=== PATIENT | female | born 1995 | race Caucasian/White ===

== ENCOUNTER 2018-06-11 17:24 | Emergency (ER) | payer OTHER ==
[~2018-06-11] VITALS: Ht 160 cm; Wt 68.0 kg
[~2018-06-11 17:24] MED LIST: CIPR500T4 PO; HYDR-3029 PO
[2018-06-11 17:28] VITALS: Ht 160 cm; Wt 68.0 kg
--- NOTE | 2018-06-11 21:38 | PSY ---
Date/Time of Note Date/Time of Note DATE: 06/11/18 TIME: 20:58 Psychiatric Subjective Eval Consent Pt consented to telemedicine: Yes Subjective Evaluation Patient location: emergency Chief Complaint: feeling anxious and depressed; denies hurting herself; unable to work Reason for consult: Assessment of dangerousness History of present illness The patient is a 23 year old Female, with a history of mood problems and problematic substance use, presenting with evidence of the same. According to ED staff, the patient presented with feelings of depression and anxiety. She indicated that she had cut herself in the past, and that she was having recent thoughts of cutting herself now. She acknowledged that she has a concurrent h/o stimulant use, and had used methamphetamines prior to presentation. I interviewed the patient with the patient's mother and father present. The patient indicated that she had initially presented with chest discomfort and shortness of breath, and that she was only there "to get checked out." She acknowledged using methamphetamines prior to admission as a means of coping. She explained that she has been unable to work secondary to significant anxiety. She acknowledged relapsing after one month sobriety. She acknowledged low mood, sleep continuity disturbance, signing agent awakenings, feelings of hopele ssness and worthlessness, and intermittent thoughts of wanting to cut herself. However, she denied the account of having made such statements when presenting to the ED. She denied any sxs consistent with psychosis or harpal. I asked the patient's mother about her concerns, and she expressed (with the patient interpreting), that she worried about the patient returning home because "she get's aggressive." She also expressed concern that the patient might indeed harm herself. Given these factors, I advised the patient that I would recommend inpatient psychiatric treatment. The pt. expressed dissatisfaction with this recommendation. Past psychiatric history The patient's first psychiatric interactions occurred in middle school for behavioral problems. She denies any past psychiatric hospitalizations. She denies any past suicide attempts despite telling ED staff that she had previously cut herself. She denies any past psychotropic trials. Hospitalization: Suicidal Attempt(s) Family History Denies Medical history Problems Medical Problems: (1) Drug abuse Status: Acute (2) Drug abuse Status: Acute (3) Patient left without being seen Status: Acute (4) UTI (urinary tract infection) Status: Acute (5) UTI (urinary tract infection) Status: Acute Allergies: Coded Allergies: ibuprofen (Verified Allergy, Unknown, swelling, 12/10/17) Substance Abuse Substance use: other (The patient acknowledges methamphetamine use of approximately $10 per day or less.) Substance abuse history: Yes (The patient acknowledges a h/o stimulant use.) Prior substance abuse treatmen: No Social History Marital status: single Level of education: Some college. DPA/Conservatorship: No Occupation/Fci: None Psychiatric Objective Eval Review of Systems: Review of Systems: Not Applicable Physical Examination: Physical Examination: Not Applicable Mental Status Examination: Appearance: Groomed Eye Contact: Fair Psychomotor Activity: Normal Behavior: Guarded Speech: Slowed AFFECT: Blunt, Depressed, Anxious, Guarded Mood: Depressed, Anxious Though Process: Circumstantial Thought Content: Normal Suicidal: Yes (Patient gives conflicting information to ED staff compared to this examiner.) Homicidal: No On 72 hour hold: No Orientation: x4 Cognition: Alert Insight: Impared Judgement: Impared Attention Span: Distractible Laboratory Results Laboratory Tests Test 06/11/18 20:39 06/11/18 20:43 White Blood Count 7.8 10^3/ul Red Blood Count 4.37 10^6/ul Hemoglobin 13.3 g/dl Hematocrit 40.5 % Mean Corpuscular Volume 92.7 fl Mean Corpuscular Hemoglobin 30.4 pg Mean Corpuscular Hemoglobin Concent 32.8 g/dl Red Cell Distribution Width 13.0 % Platelet Count 270 10^3/UL Mean Platelet Volume 11.1 fl Immature Granulocytes % 0.300 % Neutrophils % 60.8 % Lymphocytes % 29.1 % Monocytes % 8.5 % Eosinophils % 0.9 % Basophils % 0.4 % Nucleated Red Blood Cells % 0.0 /100WBC Immature Granulocytes # 0.020 10^3/ul Neutrophils # 4.8 10^3/ul Lymphocytes # 2.3 10^3/ul Monocytes # 0.7 10^3/ul Eosinophils # 0.1 10^3/ul Basophils # 0.0 10^3/ul Nucleated Red Blood Cells # 0.0 10^3/ul POC Beta HCG, Qualitative NEGATIVE Assessment and Plan Assessment/Diagnosis Diagnosis Major Depressive Disorder, recurrent, severe, without psychotic features (F33.2) rule out Social Anxiety Disorder Amphetamine dependence Recommendation/Plan Medication Management Recommend Remeron 15 mg PO qhs for depression and anxiety until the patient can be placed in a locked facility. Recommend Vistaril (or Benadryl if Vistaril unavailable) 25 mg PO [id number] PRN agitation / anxiety until the patient can be placed. Multiple antipsychotics: No Discharge Disposition: Psychiatric inpatient Legal Status: Place involuntary hold Other The patient requires inpatient treatment and is not a candidate for discharge given the followin.) The patient is giving conflicting accounts of her suicide risk to ED staff compared to this examiner. 2.) The patient is minimizing her past suicide / self-harm history. 3.) Collateral from the patient's mother (with the patient herself translating) suggests ongoing risk of harm to self and even aggression within the household. EDGAR NIELSON MD Jun 11, 2018 21:33
[2018-06-11] MEDS ORDERED: LORAZEPAM 0.5 MG TAB PO ONE (22:00)
[2018-06-11] MEDS ORDERED: CEFTRIAXONE 1 GM INJ IM ONE (22:00)
--- NOTE | 2018-06-11 23:07 | ERD ---
ER Documentation Chief Complaint Chief Complaint feeling anxious and depressed; denies hurting herself; unable to work HPI This is a 23-year-old woman brought in with family members for recent thoughts of suicidal ideation by cutting her wrists. She does admit to recent drug abuse and it seems has been recently threatening to her parents. She admits to feeling depressed and anxious as well. She denies fevers or chills, no shor tness of breath, no vomiting or diarrhea ROS All systems reviewed and are negative except as per history of present illness. Medications Home Meds Discontinued Scripts Hydroxyzine Hcl* (Hydroxyzine Hcl*) 10 Mg Tablet, 10 MG PO Q6H PRN for ANXIETY, #30 TAB Prov:KARI REBOLLAR PA-C 12/10/17 Ciprofloxacin Hcl* (Ciprofloxacin Hcl*) 500 Mg Tablet, 500 MG PO BID for 7 Days, TAB Prov:KARI REBOLLAR PA-C 12/10/17 Allergies Allergies: Coded Allergies: ibuprofen (Verified Allergy, Unknown, swelling, 06/11/18) PMhx/Soc Psychiatric illness Medical and Surgical Hx: pt denies Surgical Hx Hx Psychiatric Problems: Yes (depression, anxiety, and drug use) Hx Alcohol Use: Yes Hx Substance Use: Yes (Meth, Marijuana) Hx Tobacco Use: No Smoking Status: Current every day smoker Physical Exam Vitals Vital Signs Date Temp Pulse Resp B/P (MAP) Pulse Ox O2 O2 Flow FiO2 Time Delivery Rate 06/11/18 74 18 156/98 99 Room Air 22:43 (117) 06/11/18 99.5 71 20 149/89 98 Room Air 20:06 (109) 06/11/18 100.0 98 20 156/109 98 17:28 (125) Physical Exam Const: No acute distress, afebrile Head: Atraumatic Eyes: Normal Conjunctiva ENT: Normal External Ears, Nose and Mouth. Neck: Full range of motion. No meningismus. Resp: Clear to auscultation bilaterally Cardio: Regular rate and rhythm, no murmurs Abd: Soft, non tender, non distended. Normal bowel sounds Skin: No petechiae or rashes Back: No midline or flank tenderness Ext: No cyanosis, or edema Neur: Awake and alert x3, no focal deficits or facial asymmetry Psych: Depressed affect, anxious Result Diagram: 4203806/[id number] Results 24 hrs Laboratory Tests Test 06/11/18 20:39 06/11/18 20:43 White Blood Count 7.8 10^3/ul Red Blood Count 4.37 10^6/ul Hemoglobin 13.3 g/dl Hematocrit 40.5 % Mean Corpuscular Volume 92.7 fl Mean Corpuscular Hemoglobin 30.4 pg Mean Corpuscular Hemoglobin Concent 32.8 g/dl Red Cell Distribution Width 13.0 % Platelet Count 270 10^3/UL Mean Platelet Volume 11.1 fl Immature Granulocytes % 0.300 % Neutrophils % 60.8 % Lymphocytes % 29.1 % Monocytes % 8.5 % Eosinophils % 0.9 % Basophils % 0.4 % Nucleated Red Blood Cells % 0.0 /100WBC Immature Granulocytes # 0.020 10^3/ul Neutrophils # 4.8 10^3/ul Lymphocytes # 2.3 10^3/ul Monocytes # 0.7 10^3/ul Eosinophils # 0.1 10^3/ul Basophils # 0.0 10^3/ul Nucleated Red Blood Cells # 0.0 10^3/ul Urine Color PAULA Urine Clarity CLOUDY Urine pH 5.0 Urine Specific [place] 1.029 Urine Ketones TRACE mg/dL Urine Nitrite NEGATIVE mg/dL Urine Bilirubin NEGATIVE mg/dL Urine Urobilinogen 1+ mg/dL Urine Leukocyte Esterase 3+ Lc/ul Urine Microscopic RBC 15 /HPF Urine Microscopic WBC 84 /HPF Urine Squamous Epithelial Cells MANY /HPF Urine Bacteria FEW /HPF Urine Mucus MANY /HPF Urine Hemoglobin NEGATIVE mg/dL Urine Glucose NEGATIVE mg/dL Urine Total Protein 1+ mg/dl Sodium Level 141 mmol/L Potassium Level 4.2 mmol/L Chloride Level 104 mmol/L Carbon Dioxide Level 27 mmol/L Anion Gap 10 Blood Urea Nitrogen 13 mg/dl Creatinine 0.73 mg/dl Est Glomerular Filtrat Rate mL/min > 60 mL/min Glucose Level 96 mg/dl Calcium Level 9.3 mg/dl Total Bilirubin 0.5 mg/dl Direct Bilirubin 0.00 mg/dl Indirect Bilirubin 0.5 mg/dl Aspartate Amino Transf (AST/SGOT) 24 IU/L Alanine Aminotransferase (ALT/SGPT) 19 IU/L Alkaline Phosphatase 62 IU/L Total Protein 8.0 g/dl Albumin 4.6 g/dl Globulin 3.40 g/dl Albumin/Globulin Ratio 1.35 Salicylates Level < 2.0 mg/dl Urine Opiates Screen Negative Acetaminophen Level < 10.0 ug/ml Urine Barbiturates Negative Urine Amphetamines Screen POSITIVE Urine Benzodiazepines Screen Positive Urine Cocaine Screen Negative Urine Cannabinoids Positive Ethyl Alcohol Level < 10.0 mg/dl POC Beta HCG, Qualitative NEGATIVE Current Medications Medications Dose Sig/Nabor Start Time Status Last (Trade) Ordered Route PRN Stop Time Admin Dose Reason Admin Ceftriaxone 1 gm ONCE ONCE 06/11/18 DC 06/11/18 Sodium IM 22:00 22:12 (Rocephin) 06/11/18 22:01 Lorazepam 0.5 mg ONCE ONCE 06/11/18 DC 06/11/18 (Ativan) PO 22:00 22:12 06/11/18 22:01 Procedures/MDM Security one-to-one watch was established and tele-psychiatry was consulted. For patient's symptoms I administered lorazepam 0.5 mg p.o. x1. CBC and electrolytes were within normal limits, liver function tests were norm al, aspirin Tylenol levels negative, test negative, urinalysis positive for infection. Ethanol level, aspirin, Tylenol levels were negative. For acute UTI administered ceftriaxone 1 g IM x1. Patient's behavioral symptoms have stabilized while in the department. Patient is medically cleared and appropriate for psychiatric evaluation and work up. No e/o neurologic, toxic, infectious, or metabolic cause. Tele-psychiatry recommended involuntary psychiatric hold and transfer to [facility] Observation Note: Time: 5 hours Family Hx: No Hypertension Evaluation: Multiple exams showed improving symptoms and no evidence of abnormal vital signs or mental status decompensation. Departure Diagnosis: Primary Impression: Psychological disorder Additional Impressions: UTI (urinary tract infection) Urinary tract infection type: acute cystitis Hematuria presence: without hematuria Qualified Codes: N30.00 - Acute cystitis without hematuria Suicidal ideation Methamphetamine abuse Condition: SAMANTHA Faith MD Jun 11, 2018 23:07
[2018-06-12] MEDS ORDERED: ACETAMINOPHEN 325 MG TAB PO ONE (20:00)
[2018-06-13 03:07] VITALS: BP 117/81; PULSE 90; RESP 16
== END 2018-06-13 03:08 | disposition home or self-care (01) ==
LOC: MERGE 17:24 → E/R 17:24
DX: F99 Mental disorder, not otherwise specified (principal); N30.00 Acute cystitis without hematuria; F15.10 Other stimulant abuse, uncomplicated; F17.210 Nicotine dependence, cigarettes, uncomplicated
CPT/HCPCS: 36415; 80053; 80307; 81001; 81025; 85025; 96372; J0696; Z7502; Z7610

== ENCOUNTER 2018-07-16 12:58 | Emergency (ER) | payer OTHER ==
[~2018-07-16] VITALS: Ht 160 cm; Wt 67.8 kg
[2018-07-16 13:02] VITALS: BP 140/71; PULSE 100; RESP 18; Ht 160 cm; Wt 67.8 kg
[2018-07-16] MEDS ORDERED: AMOX1TAB10 PO (14:24)
[2018-07-16] MEDS ORDERED: ACET500C5 PO (14:24)
--- NOTE | 2018-07-16 14:29 | ERD ---
ER Documentation Chief Complaint Chief Complaint SORE THROAT X 2 DAYS HPI 23-year-old female patient previous drug use and psychiatric history presents to the ED complaining of sore throat that started 2 days ago. States that she feels like her throat is getting more swollen. Reports that she has odynophagia however denies any dysphagia. Denies any fever, chills, nausea, vomiting, diarrhea, neck stiffness, abdominal pain, chest pain. States that she is able to swallow liquids and solids without any difficulty. ROS All systems reviewed and are negative except as per history of present illness. Medications Home Meds Active Scripts Acetaminophen* (Tylophen*) 500 Mg Capsule, 1 CAP PO Q6H PRN for PAIN AND OR ELEVATED TEMP, #20 CAP Prov:LV GARY PA-C 07/16/18 Amoxicillin/Potassium Clav (Amox-Clav 875-125 mg Tablet) 875-125 mg Tab, 1 TAB PO BID for 10 Days, #20 TAB Prov:LV GARY PA-C 07/16/18 Allergies Allergies: Coded Allergies: ibuprofen (Verified Allergy, Unknown, swelling, 06/12/18) PMhx/Soc Hx Psychiatric Problems: Yes (depression, anxiety, and drug use) Hx Alcohol Use: Yes Hx Substance Use: Yes (Meth, Marijuana) Hx Tobacco Use: No FmHx Family History: No diabetes, No coronary disease Physical Exam Vitals Vital Signs Date Temp Pulse Resp B/P (MAP) Pulse Ox O2 O2 Flow FiO2 Time Delivery Rate 07/16/18 98.6 100 18 140/71 98 13:02 (94) Physical Exam Const: [id number], well-nourished. In no acute distress. Head: Atraumatic, normocephalic Eyes: Normal Conjunctiva without injection. No purulent discharge. ENT: Normal external ear, nose. Moist oropharynx with right sided tonsillar exudates. Erythematous posterior pharynx. Uvula midline. No drooling. No trismus. Neck: No cervical midline tenderness. Full range of motion. No meningismus. No cervical lymphadenopathy. No JVD. Resp: Clear to auscultation bilaterally. No wheezing, rhonchi, rales, or crackles. No accessory muscle use. No retractions. Cardio: Regular rate and rhythm. No murmurs, rubs or gallops. Abd: Soft, nontender, non distended. Normal bowel sounds. No palpable masses. No rebound tenderness. No guarding. Negative McBurney's point. Negative psoas sign. Negative obturator sign. Skin: No petechiae or rashes Back: No midline tenderness. No CVA tenderness. Ext: No cyanosis, or edema. Neur: Awake and alert. Normal gait. Normal coordination. Psych: Normal Mood and Affect Procedures/MDM 23-year-old female patient with no sniffing past medical history presents to the ED complaining of sore throat that started 2 days ago. Patient is afebrile and nontoxic-appearing. Patient is appropriate for outpatient antibiotics. Patient will be treated on outpatient basis for acute bacterial tonsillitis with antibiotics. Bilateral ears pearly dc. No tenderness to palpation of tragus or mastoid. Low suspicion for mastoiditis, otitis externa, otitis media. Patient is speaking in full sentences. There is a low suspicion for pneumonia, epiglottitis, croup, sinusitis, peritonsillar abscess, hands foot mouth disease, scarlet fever, Kawasaki disease, Stanley's angina, retropharyngeal abscess, meningitis, sepsis, acute abdomen or other emergent conditions. Diagnosis: Sore throat Discharge medications: Tylenol,Augmentin Follow up with primary care physician in 1-2 days. Instructed patient to return to the ED sooner for any worsening symptoms. Patient's questions were answered. Patient is hemodynamically stable. Patient understood and agreed with discharge plan. Patient discharged stable. Disclaimer: Inadvertent spelling and grammatical errors are likely due to EHR/dictation software use and do not reflect on the overall quality of patient care. Also, please note that the electronic time recorded on this note does not necessarily reflect the actual time of the patient encounter. Departure Diagnosis: Primary Impression: Sore throat Condition: Stable Patient Instructions: Self-Care for Sore Throats, Pharyngitis, Strep (Presumed) Referrals: COMMUNITY CLINICS YOU HAVE RECEIVED A MEDICAL SCREENING EXAM AND THE RESULTS INDICATE THAT YOU DO NOT HAVE A CONDITION THAT REQUIRES URGENT TREATMENT IN THE EMERGENCY DEPARTMENT. FURTHER EVALUATION AND TREATMENT OF YOUR CONDITION CAN WAIT UNTIL YOU ARE SEEN IN YOUR DOCTORS OFFICE WITHIN THE NEXT 1-2 DAYS. IT IS YOUR RESPONSIBILITY TO MAKE AN APPOINTMENT FOR FOLOW-UP CARE. IF YOU HAVE A PRIMARY DOCTOR --you should call your primary doctor and schedule an appointment IF YOU DO NOT HAVE A PRIMARY DOCTOR YOU CAN CALL OUR PHYSICIAN REFERRAL HOTLINE AT IF YOU CAN NOT AFFORD TO SEE A PHYSICIAN YOU CAN CHOSE FROM THE FOLLOWING [facility] [address] [facility] [facility] [address] [facility] [address] [facility] [address] [facility] [address] [facility] [facility] [address] [facility] [facility] YOU HAVE RECEIVED A MEDICAL SCREENING EXAM AND THE RESULTS INDICATE THAT YOU DO NOT HAVE A CONDITION THAT REQUIRES URGENT TREATMENT IN THE EMERGENCY DEPARTMENT. FURTHER EVALUATION AND TREATMENT OF YOUR CONDITION CAN WAIT UNTIL YOU ARE SEEN IN YOUR DOCTORS OFFICE WITHIN THE NEXT 1-2 DAYS. IT IS YOUR RESPONSIBILITY TO MAKE AN APPOINTMENT FOR FOLOW-UP CARE. IF YOU HAVE A PRIMARY DOCTOR --you should call your primary doctor and schedule and appointment IF YOU DO NOT HAVE A PRIMARY DOCTOR YOU CAN CALL OUR PHYSICIAN REFERRAL HOTLINE AT . IF YOU CAN NOT AFFORD TO SEE A PHYSICIAN YOU CAN CHOSE FROM THE FOLLOWING [facility]: [facility] [address] [place] [address] [facility] [address] [place] [address] [facility] [address] [place] [address] [facility] URGENT CARE/SPECIALTIES Additional Instructions: Call your primary care doctor TOMORROW for an appointment during the next 2-3 days.See the doctor sooner or return here if your condition worsens before your appointment time. LV GARY PA-C July 16, 2018 14:29
== END 2018-07-16 14:51 | disposition home or self-care (01) ==
LOC: FTE 12:58
DX: J02.9 Acute pharyngitis, unspecified (principal)
CPT/HCPCS: 99283